=== PATIENT | female | born 1965 | race African-American/Black ===

== ENCOUNTER 2018-12-13 21:52 | Emergency (ER) | payer BC, OTHER ==
[~2018-12-13] VITALS: Ht 149.9 cm; Wt 86.6 kg
[2018-12-14 04:03] VITALS: BP 109/65
[2018-12-14 04:59] LABS: Urine Bacteria NONE SEEN /hpf (None Seen); Urine Blood Negative /uL (Negative); Urine Mucus FEW (None Seen); Urine Specific Gravity 1.031 (1.001-1.035); Urine WBC 1 /hpf (0 - 5)
== END 2018-12-14 04:52 | disposition home or self-care (01) ==
LOC: ER 21:52
DX: S83.91XA Sprain of unspecified site of right knee, initial encounter (principal); X58.XXXA Exposure to other specified factors, initial encounter; Y93.89 Activity, other specified; Y99.8 Other external cause status; Y92.89 Other specified places as the place of occurrence of the external cause
CPT/HCPCS: 81001; 93971

== ENCOUNTER 2019-02-10 13:09 | Inpatient (IN) | payer BC ==
[~2019-02-10] VITALS: Ht 149.9 cm; Wt 92.7 kg
[2019-02-10] MEDS ORDERED: ACETAMINOPHEN 500 MG TAB PO ONE ×2 (13:23→13:30)
[2019-02-10] MEDS ORDERED: SODIUM CHLORIDE 0.9% 1,000 ML IV ONE ×2 (13:32)
[2019-02-10] MEDS ORDERED: CLINDAMYCIN 600MG IV 50 ML IV ONE (13:45)
[2019-02-10] MEDS ORDERED: cefTRIAXone 1GM/50ML D5W 50 ML IV ONE (13:45)
[2019-02-10 14:15] LABS: Basophils # (auto) 0 uL; Basophils % (auto) 0.2 % (0.0-2.0); Eosinophils # (auto) 0.1 uL; Eosinophils % (auto) 1.3 % (0.0-7.0); Hematocrit 41.5 % (36.0-46.0); Hemoglobin 14.1 g/dL (12.2-16.2); Lymphocytes # (auto) 1.6 uL; Lymphocytes % (auto) 15.8 % (10.0-50.0); Mean Corpuscular Hemoglobin 27.9 pg (28.0-32.0); Mean Corpuscular Volume 82.1 fL (80.0-100.0); Monocytes # (auto) 0.5 uL; Monocytes % (auto) 4.9 % (0.0-12.0); Neutrophils # (auto) 7.7 uL; Neutrophils % (auto) 77.8 % (37.0-80.0); Platelet Count (auto) 256 10^3/uL (140-450); Red Blood Cells 5.06 10^6/uL (4.0-5.20); Red Cell Distribution Width 13.6 % (11.8-14.3); White Blood Cell 9.9 10^3/uL (4.4-10.8)
[2019-02-10 14:16] LABS: Lactic Acid w/Reflex 2.9 mmol/L (0.4-2.0)
[2019-02-10 14:21] LABS: Urine Bacteria FEW /hpf (None Seen); Urine Blood Negative /uL (Negative); Urine Specific Gravity 1.012 (1.001-1.035); Urine WBC 1 /hpf (0 - 5)
[2019-02-10 14:26] LABS: Albumin 3.7 g/dL (3.4-5.0); BUN/Creatinine Ratio 6.7; Calcium 8.9 mg/dL (8.5-10.1); Potassium 3.8 mmol/L (3.5-5.1)
[2019-02-10 14:29] LABS: Bilirubin, Total 0.5 mg/dL (0.2-1.0); Total Protein 8.6 g/dL (6.4-8.2)
[2019-02-10 14:32] LABS: Magnesium 1.9 mg/dL (1.6-2.6)
[2019-02-10] MEDS ORDERED: NITROGLYCERIN 0.4 MG SL TAB SL PRN (15:15)
[2019-02-10] MEDS ORDERED: ONDANSETRON HCL 4 MG/2 ML VIAL IV PRN (15:15)
[2019-02-10] MEDS ORDERED: MORPHINE SULF INJ 2 MG/ML SYRINGE 1ML IV PRN ×2 (15:15)
[2019-02-10] MEDS ORDERED: HYDROcodone-ACET 5/325MG TAB PO PRN (15:15)
[2019-02-10] MEDS: ACETAMINOPHEN 500 MG TAB PO PRN (17:30)
[2019-02-10] MEDS: SODIUM CHLORIDE 0.9% 1,000 ML IV SCH (17:58)
--- NOTE | 2019-02-10 18:40 | NUR ---
Telemetry admit from ER BARBARA PHILLIP admitted to Telemetry unit after SBAR received. Patient oriented to Kita Florentino, primary RN, unit, room, bed, and unit policies regarding patient care and visiting hours. Patient now on continuous telemetry monitoring, tele box # 17 and telemetry reading on arrival to unit is Sinus tachy at 111. Patient placed on bedside oxygen, weighed by bedscale and encouraged to call if they need something. All questions and concerns addressed, patient verbalized understanding. Pt denies any pain at this time, pt given ice packs for temp 102.2, pt has been given Tylenol at ER, call light with in reach, will endorse report to material handler 2nd shift to continue care.
[2019-02-10 18:45] VITALS: BP 123/66
--- NOTE | 2019-02-10 19:20 | NUR ---
Opening Note Assumed care of patient, awake and alert x4. No S/S of distress/SOB or pain. Family is at bedside. Instructed on POC and to call for assist PRN, will continue to monitor for changes Q1hr and PRN.
[2019-02-10] MEDS: IPRATROPIUM BROM 0.5 MG/2.5ML INH SOL NEB SCH (20:03)
[2019-02-10] MEDS: ALBUTEROL SULF 2.5 MG/0.5ML(0.5%) NEB SOLN NEB SCH (20:03)
[2019-02-10 21:49] VITALS: BP 115/66
[2019-02-10] MEDS: CLINDAMYCIN 300MG IV 50 ML IV SCH (22:14)
--- NOTE | 2019-02-10 22:32 | NUR ---
Respiratory culture was collected and sent to lab via bullet system.
[2019-02-11 00:57] VITALS: BP 115/66
[2019-02-11] MEDS: SODIUM CHLORIDE 0.9% 1,000 ML IV SCH ×2 (01:15→12:55)
[2019-02-11] MEDS: ACETAMINOPHEN 500 MG TAB PO PRN ×2 (01:40→10:01)
--- NOTE | 2019-02-11 02:42 | NUR ---
Tylenol was given as ordered for mild pain at 01:40. Reassessed patient's pain level and temperature at 02:42 and it was 101.1 degrees Fahrenheit. Cooling measures are in place. Ice packs were placed under the arms, the sheets and blankets were removed. Instructed patient to leave the ice packs in place and to call if they feel like they are no longer cold. Will reassess temperature and continue to monitor patient.
--- NOTE | 2019-02-11 03:35 | NUR ---
Patient called, ice packs were warm. Replaced with new ice packs.
--- NOTE | 2019-02-11 04:09 | NUR ---
Temperature recheck Temperature is now 98.7 Cooling measures were removed. Patient is now resting in bed. Will continue to monitor patient.
[2019-02-11 04:58] VITALS: BP 117/73
[2019-02-11] MEDS: CLINDAMYCIN 300MG IV 50 ML IV SCH ×2 (06:15→14:00)
[2019-02-11] MEDS: ALBUTEROL SULF 2.5 MG/0.5ML(0.5%) NEB SOLN NEB SCH ×2 (06:26→11:35)
[2019-02-11] MEDS: IPRATROPIUM BROM 0.5 MG/2.5ML INH SOL NEB SCH ×2 (06:26→11:35)
[2019-02-11 06:35] LABS: Basophils # (auto) 0 uL; Basophils % (auto) 0.3 % (0.0-2.0); Eosinophils # (auto) 0.1 uL; Eosinophils % (auto) 1.7 % (0.0-7.0); Hemoglobin 11.7 g/dL (12.2-16.2); Lymphocytes # (auto) 2.5 uL; Lymphocytes % (auto) 28.7 % (10.0-50.0); Mean Corpuscular Hemoglobin 27.8 pg (28.0-32.0); Mean Corpuscular Hgb Conc. 34.2 g/dL (32.0-36.0); Mean Corpuscular Volume 81.3 fL (80.0-100.0); Monocytes # (auto) 0.9 uL; Monocytes % (auto) 10.6 % (0.0-12.0); Neutrophils % (auto) 58.7 % (37.0-80.0); Nucleated Red Blood Cells % 0.1 %; Platelet Count (auto) 222 10^3/uL (140-450); Red Blood Cells 4.19 10^6/uL (4.0-5.20); Red Cell Distribution Width 13.7 % (11.8-14.3); White Blood Cell 8.6 10^3/uL (4.4-10.8)
[2019-02-11 06:46] LABS: Potassium 3.1 mmol/L (3.5-5.1)
[2019-02-11 06:55] LABS: BUN/Creatinine Ratio 12.3
--- NOTE | 2019-02-11 07:30 | NUR ---
Opening Shift Note Assumed care of patient. Pt awake, alert and oriented x4. Pt sitting in bed eating breakfast, tolerating well. Pt denies any pain. No s/s of distress. Call light given to the Pt and Instructed Pt on POC and to call for assist PRN. Bed in lowest and locked position. Will continue to monitor for changes Q1hr and PRN.
--- NOTE | 2019-02-11 07:35 | NUR ---
ENDORSED CARE TO DAYSHIFT COY B[facility]LY.
[2019-02-11 09:00] VITALS: BP 114/70
[2019-02-11] MEDS ORDERED: PANTOPRAZOLE 40 MG TAB PO SCH (10:00)
[2019-02-11] MEDS ORDERED: cefTRIAXone 1GM/50ML D5W 50 ML IV SCH (10:00)
--- NOTE | 2019-02-11 12:34 | NUR ---
DR. NGO AT UNIT TO SEE PT, DOCTOR INFORMED OF PT'S POTASSIUM LEVEL 3.1,
[2019-02-11] MEDS ORDERED: POTASSIUM CHL 20 Meq TABLET PO ONE (12:45)
[2019-02-11 13:09] VITALS: BP 131/78
--- NOTE | 2019-02-11 14:02 | NUR ---
Discharge instructions given as ordered. Encourage to follow up with PMD as instructed. All questions and concerns addressed. Patient verbalized understanding. Medication reconciliation form completed and copy given to patient. No Home medications held in Pharmacy. No needed vaccines. IV removed with catheter intact, pressure dressing applied. Wrist bands removed from Pt. Telemetry unit returned to [facility]. Pt awaiting for ride home.
--- NOTE | 2019-02-11 14:45 | NUR ---
Patient walked off the unit with all personal belongings, accompanied by staff. No distress noted at time of departure.
== END 2019-02-11 14:45 | disposition home or self-care (01) | DRG 202 ==
LOC: ER 13:09 → TELE 16:05 → TELE-WESTW 18:16
PROVIDERS: ADMIT Nurse Practitioner Acute Care; ATTEND Hospitalist
DX: J20.9 Acute bronchitis, unspecified (principal); E87.2 Acidosis; Z68.41 Body mass index [BMI] 40.0-44.9, adult; E66.9 Obesity, unspecified; R09.82 Postnasal drip; K21.9 Gastro-esophageal reflux disease without esophagitis; K57.30 Diverticulosis of large intestine without perforation or abscess without bleeding; Z90.710 Acquired absence of both cervix and uterus
CPT/HCPCS: 36415; 71045; 80048; 80053; 80061; 81001; 83036; 83605; 83735; 83880; 84443; 84484; 85025; 87040; 87070; 87205; 93005; 94640; 96365; 96366; 96375; G0378; J0696; J3490

== ENCOUNTER 2020-10-19 10:01 | Emergency (ER) | payer BC ==
[~2020-10-19] VITALS: Ht 149.9 cm; Wt 90.7 kg
[2020-10-19] MEDS ORDERED: ACETAMINOPHEN 500 MG TAB PO ONE (10:30)
[2020-10-19 10:45] LABS: Basophils # (auto) 0 10 ^3/uL (0-0.2); Basophils % (auto) 0.4 % (0.0-2.0); Eosinophils # (auto) 0.1 10 ^3/uL (0-0.8); Eosinophils % (auto) 1.9 % (0.0-7.0); Hematocrit 40.7 % (36.0-46.0); Hemoglobin 14.2 g/dL (12.2-16.2); Lymphocytes # (auto) 2.8 10 ^3/uL (0.4-5.4); Lymphocytes % (auto) 34.8 % (10.0-50.0); Mean Corpuscular Hemoglobin 28.3 pg (28.0-32.0); Mean Corpuscular Hgb Conc. 34.8 g/dL (32.0-36.0); Mean Corpuscular Volume 81.3 fL (80.0-100.0); Monocytes # (auto) 0.4 10 ^3/uL (0-1.3); Monocytes % (auto) 5.1 % (0.0-12.0); Neutrophils # (auto) 4.6 10 ^3/uL (1.6-8.6); Neutrophils % (auto) 57.8 % (37.0-80.0); Nucleated Red Blood Cells % 0.1 %; Platelet Count (auto) 285 10^3/uL (140-450); Red Blood Cells 5.01 10^6/uL (4.0-5.20); Red Cell Distribution Width 13.5 % (11.8-14.3); White Blood Cell 7.9 10^3/uL (4.4-10.8)
[2020-10-19 11:05] LABS: Albumin 3.7 g/dL (3.4-5.0); Anion Gap 3 (5-15); BUN/Creatinine Ratio 14.5; Blood Urea Nitrogen 12 mg/dL (7-18); Calcium 8.6 mg/dL (8.5-10.1); Carbon Dioxide 28 mmol/L (21-32); Chloride 108 mmol/L (98-107); GFR African American 92 mL/min; GFR Non-African American 76 mL/min; Glucose 171 mg/dL (74-106); Magnesium 2.2 mg/dL (1.6-2.6); Potassium 3.9 mmol/L (3.5-5.1); Sodium 139 mmol/L (136-145)
[2020-10-19 11:10] LABS: Alanine Aminotransferase 28 U/L (13-56); Alkaline Phosphatase 165 U/L (45-117); Aspartate Aminotransferase 14 U/L (15-37); Bilirubin, Total 0.4 mg/dL (0.2-1.0); Total Protein 8.5 g/dL (6.4-8.2)
[2020-10-19 13:02] VITALS: BP 197/106
[2020-10-19] MEDS ORDERED: KETOROLAC TROMETH 60MG/2ML VIAL IM ONE (14:00)
== END 2020-10-19 15:38 | disposition home or self-care (01) ==
LOC: ER 10:01
DX: N64.4 Mastodynia (principal); R10.11 Right upper quadrant pain; K76.0 Fatty (change of) liver, not elsewhere classified
CPT/HCPCS: 36415; 71045; 76642; 76705; 80053; 83690; 83735; 83880; 84484; 85025; 93005; 96372; 99285; J1885